=== PATIENT | male | born 1990 ===

== ENCOUNTER 2020-07-30 12:03 | Outpatient (REF) | payer SELFPAY ==
[2020-08-01 21:30] LABS: SARS-CoV-2 RNA Undetected (Undetected); SARS-CoV-2 Specimen Source Nasal
== END 2020-07-30 12:23 ==
LOC: NCHCN 12:03
PROVIDERS: PCP Physician Assistant; Visit Provider Internal Medicine
DX: Z20.828 Contact with and (suspected) exposure to other viral communicable diseases (principal)
CPT/HCPCS: U0003